=== PATIENT | male | born 1950 | race American Indian/Alaskan Native ===

== ENCOUNTER 2017-10-07 12:51 | Outpatient (CLI) | payer MEDICARE, OTHER ==
--- NOTE | 2017-10-07 16:09 | XRay Report ---
XRAY RIGHT SHOULDER 2 VIEWS: 10/07/17 12:51:00 CLINICAL: Right shoulder pain. FINDINGS: A focal depression of the inferior medial humerus may be an old fracture. There is normal glenohumeral alignment with minimal arthritis of the shoulder. There is evidence of remodeling of the humeral diaphysis from an old fracture. The acromioclavicular joint is normal. No fracture or dislocation. Normal soft tissues. IMPRESSION: A remote healed fracture of the humerus. Suspect an old fracture of the inferior medial humeral head.
== END 2017-10-07 12:52 | disposition home or self-care (01) ==
LOC: SPVIMAG 12:51
PROVIDERS: ATTEND Orthopaedic Surgery
DX: M19.011 Primary osteoarthritis, right shoulder (principal); S42.301D Unspecified fracture of shaft of humerus, right arm, subsequent encounter for fracture with routine healing; X58.XXXD Exposure to other specified factors, subsequent encounter